=== PATIENT | male | born 1995 | race Hispanic/Latino ===

== ENCOUNTER 2021-03-16 17:35 | Emergency (ER) | payer OTHER ==
[~2021-03-16] VITALS: Ht 431.8 cm; Wt 61.2 kg
[2021-03-16 17:41] VITALS: BP 132/84
[2021-03-16] MEDS ORDERED: HYDROCODONE/ACETAMINOPHEN 10/325 MG TAB PO ONE (19:00)
[2021-03-16] MEDS ORDERED: ACET-2247 PO (19:13)
== END 2021-03-16 20:00 | disposition home or self-care (01) ==
LOC: EDH 17:35
DX: S52.122A Displaced fracture of head of left radius, initial encounter for closed fracture (principal); W18.39XA Other fall on same level, initial encounter; Y93.89 Activity, other specified; Y92.89 Other specified places as the place of occurrence of the external cause; Y99.8 Other external cause status
CPT/HCPCS: 29105; 73080